=== PATIENT | male | born 1975 | race African-American/Black ===

== ENCOUNTER 2017-12-23 04:18 | Emergency (ER) | payer BC ==
[~2017-12-23] VITALS: Ht 175.3 cm; Wt 113.5 kg
[2017-12-23] MEDS ORDERED: LIDOCAINE HCL 1% 20ML VIAL (Pyxis) INJ INFIL ONE (06:45)
[2017-12-23] MEDS ORDERED: LIDOCAINE HCL/PF 1% 10 MG/ML 5ML VIAL IJ ONE (07:00)
[2017-12-23 08:10] VITALS: BP 136/89
== END 2017-12-23 08:41 | disposition home or self-care (01) ==
LOC: ER 04:18
DX: S01.411A Laceration without foreign body of right cheek and temporomandibular area, initial encounter (principal); S01.81XA Laceration without foreign body of other part of head, initial encounter; Y08.89XA Assault by other specified means, initial encounter; Y93.89 Activity, other specified; Y92.89 Other specified places as the place of occurrence of the external cause; Y99.8 Other external cause status
CPT/HCPCS: 12014; 99284; J3490; X7700; Z7610